=== PATIENT | male | born 1940 | race Caucasian/White ===

== ENCOUNTER 2016-08-03 15:59 | Emergency (ER) | payer OTHER ==
[~2016-08-03] VITALS: Ht 182.9 cm; Wt 80.4 kg
[~2016-08-03 15:59] MED LIST: ACETAMINOPHEN500 MG PO; ARICEPT10 MG PO; BUTRANS1 EAC3 TD; COUMADIN,JANTO2.5 MG PO; COUMADIN2.5 MG PO; COUMADIN3 MG PO; CYMBALTA30 MG PO; Coumadin,Jantoven PO; DOLOPHINE HCL5 MG PO; Ecotrin PO; FOLIC ACID1 MG PO; GABAPENTIN300 MG PO; GABAPENTIN600 MG PO; GRALISE300 MG PO; HCTZ PO; HYDROCHLOROTH12.5 M3 PO; HYDROCODON-ACE1 EAC8 PO; Hydrodiuril,Oretic,E PO; KEFLEX500 MG PO; LISINOPRIL20 MG PO; LORTAB 5-325 M1 EACH PO; LORTAB 7.5/51 TABLET PO; MEDROL DOSEPAK4 MG PO; METHADONE10 MG PO; METHADONE5 MG PO; MICROZIDE12.5 M1 PO; MYRBETRIQ50 MG PO; NAPROSYN500 MG PO; NEURONTIN600 MG PO; NEXIUM40 MG PO; NUCYNTA50 MG PO; Neurontin PO; Nucynta PO; OTREXUP SC; PERSANTINE25 MG PO; PREDNISONE10 MG PO; PREDNISONE20 MG PO; PRINIVIL10 MG PO; RANITIDINE HCL150 MG PO; SLEEP AID25 M1 PO; TOVIAZ4 MG PO; TRAMADOL HCL50 MG PO; VALIUM5 MG PO; WARFARIN SODIU2.5 MG PO; WARFARIN SODIUM2 MG PO; WARFARIN SODIUM3 MG PO; ZESTRIL,PRINIVI10 M1 PO; ZESTRIL20 MG PO; Zantac,Taladine PO; Zestril,Prinivil PO; [UNRECOGNIZED DRUG - OTHER] PO
[2016-08-03 16:30] VITALS: BP 116/95
[2016-08-03 17:22] LABS: HEMATOCRIT 39.2 % (38.0-50.0); MCH 30.1 PG (29.0-34.0); MCHC 31.9 G/DL (30.0-36.0); MCV 94.5 FL (86-99); MEAN PLAT.VOLUME 9.3 uM^3 (9.0-12.4); PLATELET COUNT 279 K/uL (156-360); RBC DIS.WIDTH-CV 15.2 % (11.8-14.6); RBC DIS.WIDTH-SD 52.2 % (39-53); RED BLOOD COUNT 4.15 M/uL (4.00-5.50); WHITE BLOOD COUNT 4.8 K/uL (4.1-10.2)
[2016-08-03 17:29] LABS: CHLORIDE 107 mEq/L (99-109); POTASSIUM 4.3 mEq/L (3.7-5.4); SODIUM 142 mEq/L (136-147)
[2016-08-03 17:31] LABS: GLUCOSE 91 mg/dL (70-99)
[2016-08-03 17:33] LABS: ANION GAP 9 MEQ/L (2-14)
[2016-08-03 17:35] LABS: GFR ESTIMATE (CALCULATED) > 59 mL/min/
[2016-08-03 17:36] LABS: UREA NITROGEN (BUN) 22 mg/dL (9-23)
[2016-08-03 22:29] LABS: TOTAL BILIRUBIN 0.7 mg/dL (0.0-1.0)
[2016-08-03 22:30] LABS: ALKALINE PHOSPHATASE 73 IU/L (3-129)
[2016-08-03 22:32] LABS: DIRECT BILIRUBIN 0.3 mg/dL (0.0-0.3)
[2016-08-03 22:33] LABS: LIPASE 10 U/L (1.0-51.0)
[2016-08-04 01:17] LABS: C DIFF TOXIN NEGATIVE (NEGATIVE)
[2016-08-04 01:18] LABS: PROBE CHECK PASS; SPECIMEN PROCESSING CONTROL PASS
== END 2016-08-04 00:39 | disposition left against medical advice (07) ==
LOC: RME 15:59 → EME 15:59 → RME 08-04 00:39
PROVIDERS: Physician Assistant Medical
DX: R19.7 Diarrhea, unspecified (principal); I10 Essential (primary) hypertension; K21.9 Gastro-esophageal reflux disease without esophagitis; Z87.891 Personal history of nicotine dependence
CPT/HCPCS: 80048; 80076; 81003; 83690; 85027; 87493; 99281; 99282

== ENCOUNTER 2016-12-12 15:59 | Emergency (ER) | payer OTHER ==
[~2016-12-12] VITALS: Ht 182.9 cm; Wt 84.4 kg
[2016-12-12 17:30] LABS: HEMATOCRIT 38.4 % (38.0-50.0); MCH 29.1 PG (29.0-34.0); MEAN PLAT.VOLUME 9.5 uM^3 (9.0-12.4); PLATELET COUNT 260 K/uL (156-360); RBC DIS.WIDTH-CV 14.2 % (11.8-14.6); RBC DIS.WIDTH-SD 47.6 % (39-53); RED BLOOD COUNT 4.22 M/uL (4.00-5.50); WHITE BLOOD COUNT 6.1 K/uL (4.1-10.2)
[2016-12-12 17:38] LABS: CHLORIDE 110 mEq/L (99-109); INTER. NORMALIZED RATIO 2.4; PTT 38.2 SEC (25-37); SODIUM 142 mEq/L (136-147)
[2016-12-12 17:39] LABS: GLUCOSE 133 mg/dL (70-99)
[2016-12-12 17:41] LABS: ANION GAP 9 MEQ/L (2-14)
[2016-12-12 17:43] LABS: GFR ESTIMATE (CALCULATED) > 59 mL/min/
[2016-12-12 17:44] LABS: UREA NITROGEN (BUN) 20 mg/dL (9-23)
[2016-12-12 18:27] VITALS: BP 127/70
== END 2016-12-12 18:54 | disposition home or self-care (01) ==
LOC: EME 15:59
PROVIDERS: Emergency Medicine
DX: R79.1 Abnormal coagulation profile (principal); T45.515A Adverse effect of anticoagulants, initial encounter; I10 Essential (primary) hypertension; K21.9 Gastro-esophageal reflux disease without esophagitis; F32.9 Major depressive disorder, single episode, unspecified; Z86.718 Personal history of other venous thrombosis and embolism; Z87.891 Personal history of nicotine dependence
CPT/HCPCS: 80048; 85027; 85610; 85730; 99281; 99284

== ENCOUNTER 2017-01-21 22:08 | Emergency (ER) | payer OTHER ==
[~2017-01-21] VITALS: Ht 175.3 cm; Wt 86.3 kg
[2017-01-22 00:16] LABS: EOSINOPHIL (%) 1.9 % (0-5); EOSINOPHIL COUNT 0.1 K/uL (0-0.3); HEMATOCRIT 37.3 % (38.0-50.0); IMMATURE GRANULOCYTE (%) 0.3 % (0.0-0.7); INSTRUMENT ABS NEUTROPHIL CT 4.7 K/uL; LYMPHOCYTE COUNT 1.4 K/uL (1.0-2.8); MCH 28.1 PG (29.0-34.0); MCHC 31.6 G/DL (30.0-36.0); MCV 88.8 FL (86-99); MEAN PLAT.VOLUME 9.8 uM^3 (9.0-12.4); MONOCYTE (%) 12.7 % (3-12); MONOCYTE COUNT 0.9 K/uL (0-0.8); NEUTROPHIL (%) 65.3 % (45-76); NEUTROPHIL COUNT 4.7 K/uL (1.8-6.4); PLATELET COUNT 275 K/uL (156-360); RBC DIS.WIDTH-CV 14.1 % (11.8-14.6); RBC DIS.WIDTH-SD 45.9 % (39-53); WHITE BLOOD COUNT 7.2 K/uL (4.1-10.2)
[2017-01-22 00:23] LABS: INTER. NORMALIZED RATIO 2.4; PROTHROMBIN TIME 27.2 SEC (10.2-12.9)
[2017-01-22 00:25] LABS: CHLORIDE 108 mEq/L (99-109); POTASSIUM 3.7 mEq/L (3.7-5.4); PTT 39.7 SEC (25-37); SODIUM 140 mEq/L (136-147)
[2017-01-22 00:26] LABS: MAGNESIUM 1.9 mg/dL (1.3-2.7)
[2017-01-22 00:27] LABS: GLUCOSE 117 mg/dL (70-99)
[2017-01-22 00:29] LABS: ANION GAP 8 MEQ/L (2-14); TOTAL BILIRUBIN 0.5 mg/dL (0.0-1.0)
[2017-01-22 00:31] LABS: ALKALINE PHOSPHATASE 73 IU/L (3-129); GFR ESTIMATE (CALCULATED) > 59 mL/min/
[2017-01-22 00:32] LABS: UREA NITROGEN (BUN) 21 mg/dL (9-23)
[2017-01-22 05:36] VITALS: BP 132/84
== END 2017-01-22 05:37 | disposition home or self-care (01) ==
LOC: EME 22:08
PROVIDERS: Emergency Medicine
DX: R51 Headache (principal); I10 Essential (primary) hypertension; K21.9 Gastro-esophageal reflux disease without esophagitis; F32.9 Major depressive disorder, single episode, unspecified; Z86.718 Personal history of other venous thrombosis and embolism; Z87.891 Personal history of nicotine dependence; Z79.01 Long term (current) use of anticoagulants
CPT/HCPCS: 70450; 80053; 83735; 85025; 85610; 85730; 99281; 99285; J1200; J2765; J3475; J7030

== ENCOUNTER 2017-04-13 18:33 | Inpatient (IN) | payer OTHER ==
[~2017-04-13] VITALS: Ht 182.9 cm; Wt 84.5 kg
[2017-04-13 19:26] LABS: BASOPHIL (%) 0.1 % (0-1); EOSINOPHIL (%) 0 % (0-5); HEMATOCRIT 40.2 % (38.0-50.0); IMMATURE GRANULOCYTE (%) 0.5 % (0.0-0.7); LYMPHOCYTE (%) 8.7 % (15-42); MCH 28.3 PG (29.0-34.0); MCHC 32.3 G/DL (30.0-36.0); MCV 87.6 FL (86-99); MONOCYTE (%) 9.4 % (3-12); NEUTROPHIL (%) 81.3 % (45-76); NEUTROPHIL COUNT 8.9 K/uL (1.8-6.4); PLATELET COUNT 266 K/uL (156-360); RBC DIS.WIDTH-CV 14.9 % (11.8-14.6); RBC DIS.WIDTH-SD 48.1 % (39-53); RED BLOOD COUNT 4.59 M/uL (4.00-5.50); WHITE BLOOD COUNT 10.9 K/uL (4.1-10.2)
[2017-04-13 19:40] LABS: ALBUMIN 3.7 g/dL (3.2-4.8)
[2017-04-13 19:41] LABS: CHLORIDE 101 mEq/L (99-109); POTASSIUM 3.8 mEq/L (3.7-5.4); SODIUM 135 mEq/L (136-147)
[2017-04-13 19:43] LABS: GLUCOSE 112 mg/dL (70-99); TOTAL PROTEIN 7.2 g/dL (6.4-8.3)
[2017-04-13 19:45] LABS: TOTAL BILIRUBIN 0.9 mg/dL (0.0-1.0)
[2017-04-13 19:46] LABS: ALKALINE PHOSPHATASE 94 IU/L (3-129)
[2017-04-13 19:47] LABS: GFR ESTIMATE (CALCULATED) > 59 mL/min/ (58.99-99999)
[2017-04-13 19:48] LABS: AST (GOT) 125 IU/L (2-34); UREA NITROGEN (BUN) 31 mg/dL (9-23)
[2017-04-13 19:50] LABS: ALT (GPT) 45 IU/L (3-49); TOTAL CK 3532 IU/L (1-294)
[2017-04-13 19:55] LABS: CREATINE KINASE 3532 IU/L (1-294)
[2017-04-13 19:56] LABS: CK-MB 9.2 ng/mL (0.0-4.9); CKMB RELATIVE INDEX 0.3 (0.0-3.9)
[2017-04-13 20:17] LABS: TROP-I INTERPRETATION NEGATIVE; TROPONIN-I 0.02 ng/mL (0.0-0.30)
[2017-04-13 21:40] LABS: INTER. NORMALIZED RATIO 2.1
[2017-04-13] MEDS ORDERED: COUMADIN1 MG PO (22:57)
[2017-04-13] MEDS ORDERED: METHADONE5 MG PO (22:57)
[2017-04-13] MEDS ORDERED: ZESTRIL30 MG PO (22:57)
[2017-04-13 23:36] LABS: APPEARANCE SL.HAZY ((CLEAR)); BILIRUBIN NEGATIVE; BLOOD MODERATE; COLOR YELLOW ((YELLOW)); GLUCOSE (STRIP) NEGATIVE; KETONES 5; LEUKOCYTES NEGATIVE; NITRITE NEGATIVE; PROTEIN (STRIP) 100; SPECIFIC GRAVITY 1.025 (1.000-1.030)
[2017-04-13 23:41] LABS: BACTERIA RARE /HPF; EPITHELIAL CELLS NONE SEEN /HPF; HYALINE CASTS 0-5 /LPF; MUCUS 1+ /LPF; RED BLOOD CELLS 0-5 /HPF (0-5); UCUL ADDED? NO; WHITE BLOOD CELLS 0-5 /HPF (0-5)
[2017-04-14 08:20] LABS: HEMATOCRIT 36.7 % (38.0-50.0); HEMOGLOBIN 11.5 G/DL (12.5-16.6); MCH 27.8 PG (29.0-34.0); MCHC 31.3 G/DL (30.0-36.0); MCV 88.9 FL (86-99); PLATELET COUNT 246 K/uL (156-360); RBC DIS.WIDTH-SD 48.5 % (39-53); RED BLOOD COUNT 4.13 M/uL (4.00-5.50); WHITE BLOOD COUNT 9.6 K/uL (4.1-10.2)
[2017-04-14 08:32] LABS: CHLORIDE 107 mEq/L (99-109); POTASSIUM 3.6 mEq/L (3.7-5.4); SODIUM 138 mEq/L (136-147)
[2017-04-14 08:33] LABS: GLUCOSE 151 mg/dL (70-99)
[2017-04-14 08:37] LABS: CREATININE 0.9 mg/dL (0.6-1.3); GFR ESTIMATE (CALCULATED) > 59 mL/min/ (58.99-99999)
[2017-04-14 08:38] LABS: UREA NITROGEN (BUN) 26 mg/dL (9-23)
[2017-04-14 08:42] LABS: CREATINE KINASE 1810 IU/L (1-294)
[2017-04-14 14:24] LABS: INTER. NORMALIZED RATIO 1.9
[2017-04-14 15:24] VITALS: BP 128/66
[2017-04-15] VITALS (7 sets, daily range): BP systolic 132–159; BP diastolic 62–77
[2017-04-15 05:39] LABS: HEMATOCRIT 34.9 % (38.0-50.0); HEMOGLOBIN 11.1 G/DL (12.5-16.6); MCH 27.8 PG (29.0-34.0); MCHC 31.8 G/DL (30.0-36.0); MCV 87.5 FL (86-99); PLATELET COUNT 256 K/uL (156-360); RBC DIS.WIDTH-SD 48.7 % (39-53); RED BLOOD COUNT 3.99 M/uL (4.00-5.50)
[2017-04-15 05:49] LABS: INTER. NORMALIZED RATIO 2.1
[2017-04-15 06:25] LABS: CHLORIDE 107 MEQ/L (99-109); CREATININE 0.9 MG/DL (0.6-1.3); GFR ESTIMATE (CALCULATED) > 59 mL/min/ (58.99-99999); POTASSIUM 4.1 MEQ/L (3.7-5.4); SODIUM 140 MEQ/L (136-147); UREA NITROGEN (BUN) 21 mg/dL (9-23)
[2017-04-15 06:28] LABS: CREATINE KINASE 1012 IU/L (1-294); GLUCOSE 102 mg/dL (70-99)
[2017-04-16 06:30] LABS: HEMATOCRIT 33.9 % (38.0-50.0); HEMOGLOBIN 10.9 G/DL (12.5-16.6); MCH 28.2 PG (29.0-34.0); MCHC 32.2 G/DL (30.0-36.0); MCV 87.6 FL (86-99); PLATELET COUNT 268 K/uL (156-360); RBC DIS.WIDTH-CV 15.2 % (11.8-14.6); RBC DIS.WIDTH-SD 48.7 % (39-53); RED BLOOD COUNT 3.87 M/uL (4.00-5.50); WHITE BLOOD COUNT 9.6 K/uL (4.1-10.2)
[2017-04-16 06:46] LABS: INTER. NORMALIZED RATIO 2.9
[2017-04-16 06:55] VITALS: BP 165/76
[2017-04-16 07:05] LABS: ALBUMIN 2.9 G/DL (3.2-4.8); ALKALINE PHOSPHATASE 82 IU/L (3-129); ALT (GPT) 37 IU/L (3-49); AST (GOT) 54 IU/L (2-34); CHLORIDE 104 MEQ/L (99-109); CREATININE 0.8 MG/DL (0.6-1.3); GFR ESTIMATE (CALCULATED) > 59 mL/min/ (58.99-99999); GLUCOSE 98 mg/dL (70-99); POTASSIUM 3.7 MEQ/L (3.7-5.4); SODIUM 143 MEQ/L (136-147); TOTAL BILIRUBIN 0.5 MG/DL (0.0-1.0); TOTAL PROTEIN 5.6 G/DL (6.4-8.3); UREA NITROGEN (BUN) 14 mg/dL (9-23)
[2017-04-16 08:20] LABS: FERRITIN 332 NG/ML (22-322)
[2017-04-16 15:15] VITALS: BP 126/65
[2017-04-16 23:08] VITALS: BP 147/72
[2017-04-17 06:24] LABS: INTER. NORMALIZED RATIO 3.2
[2017-04-17 07:41] VITALS: BP 163/77
[2017-04-17 16:06] VITALS: BP 164/79
[2017-04-17 22:45] VITALS: BP 127/58
[2017-04-18 06:50] LABS: INTER. NORMALIZED RATIO 2.8
[2017-04-18 07:30] VITALS: BP 118/65
[2017-04-18 18:00] VITALS: BP 140/64
[2017-04-19] VITALS: BP 141/71
[2017-04-19 06:32] LABS: HEMATOCRIT 35.1 % (38.0-50.0); HEMOGLOBIN 11.1 G/DL (12.5-16.6); MCH 27.6 PG (29.0-34.0); MCHC 31.6 G/DL (30.0-36.0); MCV 87.3 FL (86-99); RBC DIS.WIDTH-SD 48.6 % (39-53); RED BLOOD COUNT 4.02 M/uL (4.00-5.50); WHITE BLOOD COUNT 7.1 K/uL (4.1-10.2)
[2017-04-19 06:38] LABS: INTER. NORMALIZED RATIO 2.6
[2017-04-19 06:57] LABS: CHLORIDE 102 MEQ/L (99-109); CREATININE 0.9 MG/DL (0.6-1.3); GFR ESTIMATE (CALCULATED) > 59 mL/min/ (58.99-99999); GLUCOSE 113 mg/dL (70-99); SODIUM 141 MEQ/L (136-147); UREA NITROGEN (BUN) 15 mg/dL (9-23)
[2017-04-19 07:15] VITALS: BP 129/56
[2017-04-19 07:43] LABS: PLATELET COUNT 383 K/uL (156-360)
[2017-04-19] MEDS ORDERED: DOXYCYCLINE HY100 MG PO (10:53)
[2017-04-19] MEDS ORDERED: AUGMENTIN875 MG PO (10:53)
[2017-04-19 16:27] VITALS: BP 160/70
[2017-04-20 00:10] VITALS: BP 112/56
[2017-04-20 07:41] VITALS: BP 122/72
[2017-04-20 07:52] LABS: INTER. NORMALIZED RATIO 2.4
[2017-04-20 16:28] VITALS: BP 111/66
[2017-04-20 22:51] VITALS: BP 127/65
[2017-04-21 06:17] LABS: BASOPHIL (%) 0.5 % (0-1); EOSINOPHIL (%) 3.9 % (0-5); EOSINOPHIL COUNT 0.2 K/uL (0-0.3); HEMATOCRIT 34.9 % (38.0-50.0); HEMOGLOBIN 11.1 G/DL (12.5-16.6); IMMATURE GRANULOCYTE (%) 1.6 % (0.0-0.7); LYMPHOCYTE (%) 24.9 % (15-42); LYMPHOCYTE COUNT 1.4 K/uL (1.0-2.8); MCH 27.9 PG (29.0-34.0); MCHC 31.8 G/DL (30.0-36.0); MCV 87.7 FL (86-99); MONOCYTE (%) 20.7 % (3-12); MONOCYTE COUNT 1.2 K/uL (0-0.8); NEUTROPHIL (%) 48.4 % (45-76); NEUTROPHIL COUNT 2.7 K/uL (1.8-6.4); PLATELET COUNT 398 K/uL (156-360); RBC DIS.WIDTH-CV 14.9 % (11.8-14.6); RBC DIS.WIDTH-SD 48.1 % (39-53); RED BLOOD COUNT 3.98 M/uL (4.00-5.50); WHITE BLOOD COUNT 5.7 K/uL (4.1-10.2)
[2017-04-21 06:51] LABS: INTER. NORMALIZED RATIO 2.6
[2017-04-21 07:11] VITALS: BP 128/62
[2017-04-21 07:33] LABS: ALBUMIN 2.9 G/DL (3.2-4.8); ALKALINE PHOSPHATASE 94 IU/L (3-129); ALT (GPT) 24 IU/L (3-49); CHLORIDE 105 MEQ/L (99-109); CREATININE 0.8 MG/DL (0.6-1.3); GFR ESTIMATE (CALCULATED) > 59 mL/min/ (58.99-99999); GLUCOSE 99 mg/dL (70-99); POTASSIUM 4.4 MEQ/L (3.7-5.4); SODIUM 140 MEQ/L (136-147); UREA NITROGEN (BUN) 18 mg/dL (9-23)
[2017-04-21 07:35] LABS: AST (GOT) 26 IU/L (2-34); CREATINE KINASE 79 IU/L (1-294); TOTAL BILIRUBIN 0.3 MG/DL (0.0-1.0); TOTAL PROTEIN 6.6 G/DL (6.4-8.3)
[2017-04-21] MEDS ORDERED: METHADONE5 MG PO (11:53)
== END 2017-04-21 11:34 | DRG 603 ==
LOC: EME 18:33 → EDOF 23:53 → ENRESERV 23:56 → 5EAST 04-14 14:20 → ENPENDDIS 04-19 → EDPENDDISTM 04-19 11:30 → 5EAST 04-21 11:34
PROVIDERS: Emergency Medicine; Hospitalist; Physician Assistant
DX: L03.115 Cellulitis of right lower limb (principal); M62.82 Rhabdomyolysis; L97.318 Non-pressure chronic ulcer of right ankle with other specified severity; L97.519 Non-pressure chronic ulcer of other part of right foot with unspecified severity; L97.828 Non-pressure chronic ulcer of other part of left lower leg with other specified severity; I73.9 Peripheral vascular disease, unspecified; E87.6 Hypokalemia; I10 Essential (primary) hypertension; I89.0 Lymphedema, not elsewhere classified; I87.8 Other specified disorders of veins; I87.303 Chronic venous hypertension (idiopathic) without complications of bilateral lower extremity; K21.9 Gastro-esophageal reflux disease without esophagitis; G89.4 Chronic pain syndrome; D64.9 Anemia, unspecified; D32.9 Benign neoplasm of meninges, unspecified; Z79.01 Long term (current) use of anticoagulants; Z79.891 Long term (current) use of opiate analgesic; Z86.718 Personal history of other venous thrombosis and embolism; Z87.891 Personal history of nicotine dependence
CPT/HCPCS: 70450; 71046; 73590; 73630; 73700; 80048; 80053; 80202; 81003; 82550; 82553; 82728; 83516 90; 83605; 84484; 85025; 85027; 85610; 86038; 86235; 86256 90; 87040; 93005; 93971; 99281; 99285; J0690; J0696; J2543; J3370; J7030